=== PATIENT | female | born 1950 | race Caucasian/White ===

== ENCOUNTER 2016-11-24 09:13 | Inpatient (IN) | payer MEDICARE, OTHER ==
[~2016-11-24] VITALS: Ht 162.6 cm; Wt 54.9 kg
[2016-11-24 11:16] LABS: RED BLOOD COUNT 4.04 M/UL (4.00-5.10); WHITE BLOOD COUNT 7.2 K/UL (4.5-11.0)
[2016-11-24 12:00] LABS: BUN/CREATININE RATIO 36 (0-10)
[2016-11-24] MEDS ORDERED: FLOVENT 220.1 GM/INH INH (17:37)
[2016-11-24] MEDS ORDERED: PROAIR HFA8.5 GM INH (17:37)
[2016-11-24] MEDS ORDERED: NEXIUM20 MG PO (17:38)
[2016-11-24] MEDS ORDERED: SINGULAIR10 MG PO (17:38)
[2016-11-24] MEDS ORDERED: ALPRAZOLAM0.5 MG PO (17:39)
[2016-11-25 06:48] LABS: HEMOGLOBIN 10.5 gm/dl (12.3-15.3); WHITE BLOOD COUNT 6.7 K/UL (4.5-11.0)
[2016-11-25 06:50] LABS: RED BLOOD COUNT 3.53 M/UL (4.00-5.10)
[2016-11-25 07:08] LABS: BUN/CREATININE RATIO 33 (0-10)
--- NOTE | 2016-11-26 04:52 | NUR ---
AT 0230 PATIENT CALLED OUT SAYING HER LEFT SHOULDER WAS HURTING FROM HER BURSITIS. SHE ASKED FOR TYLENOL BUT SHE DIDN'T HAVE AN ORDER FOR TYLENOL. I GOT HER A HEATING PAD AND TOLD HER TO LET ME KNOW IF THAT DIDN'T HELP I'D CALL THE MD. SHE KEPT ASKING FOR A STEROID SHOT. I CALLED DR GAVIN AT 0307 AND HE GAVE ME AN ORDER FOR 1000MG OF TYLENOL. I DID MENTION THE REQUEST FOR A STEROID SHOT AND HE REFUSED. I OFFERED THE PATIENT THE TYLENOL AND SHE REFUSED IT STATING THAT TYLENOL MADE HER SLEEPY AND THAT SHE DIDN'T WANT IT. SHE THEN ASKED FOR NAUSEA MEDICINE. I CALLED ROMA[facility] BACK AND GOT AN ORDER FOR ZOFRAN. PATIENT ASKED ME TO CALL DR MAURO AND I TOLD HER THAT I COULDN'T CALL HIM BECAUSE HE WASN'T CONCERT MANAGER THAT I HAD TO CALL DR GAVIN. I TOLD HER THAT DR MAURO WOULDN'T BE CONCERT MANAGER UNTIL 0800.
[2016-11-26 05:00] LABS: HEMOGLOBIN 10.7 gm/dl (12.3-15.3); RED BLOOD COUNT 3.63 M/UL (4.00-5.10); WHITE BLOOD COUNT 8.6 K/UL (4.5-11.0)
[2016-11-26 05:14] LABS: BUN/CREATININE RATIO 34 (0-10)
[2016-11-27 04:06] LABS: HEMOGLOBIN 10.5 gm/dl (12.3-15.3); RED BLOOD COUNT 3.58 M/UL (4.00-5.10); WHITE BLOOD COUNT 6.7 K/UL (4.5-11.0)
[2016-11-27 04:30] LABS: BUN/CREATININE RATIO 31 (0-10)
[2016-11-28 04:47] LABS: HEMOGLOBIN 10.3 gm/dl (12.3-15.3); RED BLOOD COUNT 3.54 M/UL (4.00-5.10)
[2016-11-28 04:51] LABS: WHITE BLOOD COUNT 13.7 K/UL (4.5-11.0)
[2016-11-28 05:22] LABS: BUN/CREATININE RATIO 40 (0-10)
[2016-11-28] MEDS ORDERED: ASPIR 8181 MG PO (16:06)
[2016-11-28] MEDS ORDERED: LOSARTAN POTASS25 MG PO (16:08)
[2016-11-28] MEDS ORDERED: METOPROLOL TART25 MG PO (16:09)
[2016-11-28] MEDS ORDERED: THERAGRAN TAB1 EA PO (16:09)
== END 2016-11-28 21:18 | disposition home or self-care (01) | DRG 286 ==
LOC: ER1 09:13 → MED SURG 4 14:53 → ZEROF 14:53 → MED SURG 4 14:53
PROVIDERS: Internal Medicine Infectious Disease; Nurse Practitioner; Physician Assistant; ADMIT Internal Medicine
PROC: 4A023N7 Measurement of Cardiac Sampling and Pressure, Left Heart, Percutaneous Approach (ICD-10-PCS; principal; 2016-11-28)
PROC: B2111ZZ Fluoroscopy of Multiple Coronary Arteries using Low Osmolar Contrast (ICD-10-PCS; principal; 2016-11-28)
DX: I42.0 Dilated cardiomyopathy (principal); I50.21 Acute systolic (congestive) heart failure; Q24.5 Malformation of coronary vessels; I50.22 Chronic systolic (congestive) heart failure; I95.9 Hypotension, unspecified; E86.0 Dehydration; I49.3 Ventricular premature depolarization; R42 Dizziness and giddiness; R00.2 Palpitations; D64.9 Anemia, unspecified; K21.9 Gastro-esophageal reflux disease without esophagitis; I44.7 Left bundle-branch block, unspecified; J44.9 Chronic obstructive pulmonary disease, unspecified; F41.9 Anxiety disorder, unspecified; R63.4 Abnormal weight loss; R63.0 Anorexia; Z88.8 Allergy status to other drugs, medicaments and biological substances; Z83.3 Family history of diabetes mellitus; Z82.49 Family history of ischemic heart disease and other diseases of the circulatory system; Z87.891 Personal history of nicotine dependence
CPT/HCPCS: ECHO; 36415; 70450; 71010; 78452; 80048; 80053; 80061; 81001; 82550; 82553; 83874; 84443; 84484; 85025; 85027; 93005; 93017; 93306; 93880; 94640; 94664; 96360; 99152; 99285; A9502; C1769; C1894; J1100; J1644; J2250; J2405; J3010; J7030; Q9963

== ENCOUNTER → 2020-07-10 | Outpatient (CLI) | payer MEDICARE ==
[~2020-07-10] MED LIST: ALPRAZOLAM0.5 MG PO; ASPIR 8181 MG PO; COZAAR 25MG TAB25 MG PO; COZAAR100 MG PO; FLOVENT 220.1 GM/INH INH; GUAIFENESI100 MG/5 M PO; METOPROLOL TART25 MG PO; MYCOSTATIN100000 UTS PO; NEXIUM20 MG PO; OSTERA TABLET1 EACH PO; PREDNISONE20 MG PO; PROAIR HFA8.5 GM INH; SINGULAIR10 MG PO; THERAGRAN TAB1 EA PO; VENTOLIN HFA 66.7 GM INH; VIBRAMYCIN100 MG PO; VITAMIN D1000 UNIT PO; XOPENEX1.25 MG/3 INH
== END ==
LOC: KOH-I 08:00
DX: R91.1 Solitary pulmonary nodule (principal); R91.8 Other nonspecific abnormal finding of lung field
CPT/HCPCS: 71250

== ENCOUNTER → 2020-09-18 | Outpatient (CLI) | payer MEDICARE | LOC: CT 09:45 | DX: K86.89 Other specified diseases of pancreas (principal) | CPT/HCPCS: 36415; 82565 ==